=== PATIENT | male | born 1970 | race Caucasian/White ===

== ENCOUNTER 2016-08-04 14:39 | Emergency (ER) | payer OTHER, MEDICARE | END 2016-08-04 16:30 | disposition home or self-care (01) | LOC: ER 14:39 | DX: L03.116 Cellulitis of left lower limb (principal); S91.332A Puncture wound without foreign body, left foot, initial encounter; E11.42 Type 2 diabetes mellitus with diabetic polyneuropathy; I10 Essential (primary) hypertension; F17.210 Nicotine dependence, cigarettes, uncomplicated; Z79.899 Other long term (current) drug therapy; Z79.82 Long term (current) use of aspirin; Z79.4 Long term (current) use of insulin; W45.0XXA Nail entering through skin, initial encounter | CPT/HCPCS: 36415; 96365; 96375; J1885; J3370 ==

== ENCOUNTER 2016-08-05 13:45 | Emergency (ER) | payer MEDICARE | END 2016-08-05 15:51 | disposition home or self-care (01) | LOC: ER 13:45 | DX: L03.116 Cellulitis of left lower limb (principal); E11.9 Type 2 diabetes mellitus without complications; I10 Essential (primary) hypertension; F17.210 Nicotine dependence, cigarettes, uncomplicated; Z79.82 Long term (current) use of aspirin; Z79.4 Long term (current) use of insulin; Z79.899 Other long term (current) drug therapy | CPT/HCPCS: 96365; J3370 ==

== ENCOUNTER 2016-08-06 13:11 | Emergency (ER) | payer MEDICARE | END 2016-08-06 14:45 | disposition home or self-care (01) | LOC: ER 13:11 | DX: S91.332A Puncture wound without foreign body, left foot, initial encounter (principal); E11.9 Type 2 diabetes mellitus without complications; E78.00 Pure hypercholesterolemia, unspecified; I10 Essential (primary) hypertension; F17.210 Nicotine dependence, cigarettes, uncomplicated; Z79.82 Long term (current) use of aspirin; Z79.84 Long term (current) use of oral hypoglycemic drugs; Z79.899 Other long term (current) drug therapy; X58.XXXA Exposure to other specified factors, initial encounter ==

== ENCOUNTER 2016-08-12 23:00 | Emergency (ER) | payer MEDICARE | END 2016-08-13 00:42 | disposition home or self-care (01) | LOC: ER 23:00 | DX: S91.332D Puncture wound without foreign body, left foot, subsequent encounter (principal); L08.9 Local infection of the skin and subcutaneous tissue, unspecified; E11.9 Type 2 diabetes mellitus without complications; F17.210 Nicotine dependence, cigarettes, uncomplicated; I10 Essential (primary) hypertension; Z79.82 Long term (current) use of aspirin; Z79.4 Long term (current) use of insulin; Z79.899 Other long term (current) drug therapy; W45.0XXD Nail entering through skin, subsequent encounter ==